=== PATIENT | female | born 1975 | race Caucasian/White ===

== ENCOUNTER 2018-04-28 17:50 | Emergency (ER) | payer BC, OTHER ==
[~2018-04-28] VITALS: Ht 154.9 cm; Wt 56.6 kg
[~2018-04-28 17:50] MED LIST: AZIT250T PO; CEPH-443 PO; DOXY100T20 PO; IBUP-1542 PO; ONDA4TAB35 PO
[2018-04-28 18:57] VITALS: BP 122/59; PULSE 69; RESP 18; Ht 154.9 cm; Wt 56.6 kg
[2018-04-28] MEDS ORDERED: ALBU18HF INHALATION (20:59)
[2018-04-28] MEDS ORDERED: AZIT250T PO (20:59)
[2018-04-28] MEDS ORDERED: BENZ-6 PO (20:59)
--- NOTE | 2018-04-28 21:05 | ERD ---
ER Documentation Chief Complaint Chief Complaint COUGH, FEVER X'S 1 WEEK HPI 43-year-old female patient with no significant past medical history presents to ED complaining of cough, fever that started 1 week ago. Patient reports that her son also has similar symptoms. Denies any chest pain, shortness of breath, nausea, vomiting, diarrhea, neck stiffness. ROS All systems reviewed and are negative except as per history of present illness. Medications Home Meds Active Scripts Albuterol Sulfate* (Ventolin HFA*) 18 Gm Hfa.aer.ad, 2 PUFF INHALATION Q4H, #1 INHALER Prov:MAGUI LUGO PA-C 04/28/18 Benzonatate* (Tessalon Perle*) 100 Mg Capsule, 100 MG PO Q8H PRN for COUGH, #20 CAP Prov:MAGUI LUGO PA-C 04/28/18 Azithromycin* (Zithromax*) 250 Mg Tablet, 250 MG PO .ZPACK DIRECTED, #6 TAB TAKE 500 MG (2 TABS) THE FIRST DAY THEN 250 MG (1 TAB) DAYS 2-5 Prov:MAGUI LUGO PA-C 04/28/18 Ibuprofen* (Ibuprofen*) 600 Mg Tablet, 600 MG PO Q6 for 10 Days, TAB Prov:JOSE GRANADOS MD 10/04/15 Doxycycline Hyclate* (Doxycycline Hyclate*) 100 Mg Tablet.dr, 100 MG PO BID for 3 Days, TAB Prov:JOSE GRANADOS MD 10/04/15 Cephalexin* (Keflex*) 500 Mg Capsule, 500 MG PO QID for 5 Days, CAP Prov:JONEL HARVEY PA-C 08/02/15 Ondansetron Hcl* (Zofran* ODT) 4 mg -ODT Tab.disper, 4 MG PO Q6 PRN for NAUSEA AND/OR VOMITING, #10 TAB Prov:RAJIV RANGEL NP 07/14/15 Azithromycin* (Zithromax*) 250 Mg Tablet, 250 MG PO .ZPACK DIRECTED, #6 TAB TAKE 500 MG (2 TABS) THE FIRST DAY THEN 250 MG (1 TAB) DAYS 2-5 Prov:DECLAN DUMAS MD 04/24/15 Allergies Allergies: Coded Allergies: No Known Allergy (Unverified , 10/04/15) PMhx/Soc History of Surgery: No Anesthesia Reaction: No Hx Neurological Disorder: No Hx Respiratory Disorders: No Hx Cardiac Disorders: No Hx Psychiatric Problems: No Hx Miscellaneous Medical Probl: No Hx Alcohol Use: No Hx Substance Use: No Hx Tobacco Use: No Smoking Status: Never smoker FmHx Family History: No diabetes, No coronary disease Physical Exam Vitals Vital Signs Date Temp Pulse Resp B/P (MAP) Pulse Ox O2 O2 Flow FiO2 Time Delivery Rate 04/28/18 97.8 69 18 122/59 100 18:57 (80) Physical Exam Const: Gjs-hdp-phmpfxnsy, well-nourished. In no acute distress. Head: Atraumatic, normocephalic Eyes: Normal Conjunctiva without injection. No purulent discharge. PERRL. EOMI ENT: Normal external ear. Ear canal without erythema. Tympanic membrane pearly miller without effusion or bulging. Nasal canal clear with normal turbinates. Moist oropharynx without tonsillar exudates. Non-erythematous pharynx. Uvula midline. No drooling. No trismus. Neck: Full range of motion. No meningismus. No cervical lymphadenopathy. Resp: Clear to auscultation bilaterally. No wheezing, rhonchi, rales, or crackles. No accessory muscle use. No retractions. Cardio: Regular rate and rhythm. No murmurs, rubs or gallops. Abd: Soft, non tender, non distended. Normal bowel sounds. No palpable masses. No rebound tenderness. No guarding. Skin: No petechiae or rashes Back: No midline tenderness. No CVA tenderness. Ext: No cyanosis, or edema. Neur: Awake and alert. Psych: Normal Mood and Affect Procedures/MDM 43-year-old female patient with no sniffing past medical history presents to ED complaining of fever and cough. Patient is afebrile and nontoxic-appearing. Based on patient's a dry cough and duration of cough without any relief with her qbgz-chw-frdisvc cough medications, patient could likely have bronchitis. Patient will be treated for bacterial etiology a glji-vjz-sot prescription, if patient's symptoms do not improve in 5 days, patient can start taking the antibiotics. Patient's physical exam include lungs which were clear to auscultation and a normal pulse oximetry. There is a low suspicion for pneumonia, pneumothorax, mononucleosis, pulmonary embolism, epiglottitis, otitis media, otitis externa, viral/strep pharyngitis, sinusitis, myocarditis, pericarditis, endocarditis, peritonsillar abscess, mastoiditis, retropharyngeal abscess, meningitis, sepsis, acute abdomen or other emergent conditions. Diagnosis: Cough Discharge medications: Zithromax, Tessalon Perles, Ventolin Patient was instructed to return to the ED for any new or worsening symptoms. They should otherwise follow up with the primary care provider within 2-3 days. The patient's questions were answered at the time of discharge. Patient understood and agreed with discharge management. Departure Diagnosis: Primary Impression: Cough Condition: Stable Patient Instructions: Bronchitis, Antiobiotic Treatment (Adult) Referrals: SOPHIA JUÁREZ MD (PCP) [facility] YOU HAVE RECEIVED A MEDICAL SCREENING EXAM AND THE RESULTS INDICATE THAT YOU DO NOT HAVE A CONDITION THAT REQUIRES URGENT TREATMENT IN THE EMERGENCY DEPARTMENT. FURTHER EVALUATION AND TREATMENT OF YOUR CONDITION CAN WAIT UNTIL YOU ARE SEEN IN YOUR DOCTORS OFFICE WITHIN THE NEXT 1-2 DAYS. IT IS YOUR RESPONSIBILITY TO MAKE AN APPOINTMENT FOR [facility] CARE. IF YOU HAVE A PRIMARY DOCTOR --you should call your primary doctor and schedule an appointment IF YOU DO NOT HAVE A PRIMARY DOCTOR YOU CAN CALL OUR PHYSICIAN REFERRAL HOTLINE AT IF YOU CAN NOT AFFORD TO SEE A PHYSICIAN YOU CAN CHOSE FROM THE FOLLOWING [facility] CL[facility]ICS [facility] [address] [facility]. [facility] [address] [facility] [facility] [address] [facility] [address] [facility]. [facility] [address] [facility]. [facility]. [address] [facility] YOU HAVE RECEIVED A MEDICAL SCREENING EXAM AND THE RESULTS INDICATE THAT YOU DO NOT HAVE A CONDITION THAT REQUIRES URGENT TREATMENT IN THE EMERGENCY DEPARTMENT. FURTHER EVALUATION AND TREATMENT OF YOUR CONDITION CAN WAIT UNTIL YOU ARE SEEN IN YOUR DOCTORS OFFICE WITHIN THE NEXT 1-2 DAYS. IT IS YOUR RESPONSIBILITY TO MAKE AN APPOINTMENT FOR [facility]. IF YOU HAVE A PRIMARY DOCTOR --you should call your primary doctor and schedule and appointment IF YOU DO NOT HAVE A PRIMARY DOCTOR YOU CAN CALL OUR PHYSICIAN REFERRAL HOTLINE AT . IF YOU CAN NOT AFFORD TO SEE A PHYSICIAN YOU CAN CHOSE FROM THE FOLLOWING [facility] INSTITUTIONS: [facility] [address] [place] [address] [facility] [address] [place] [address] [facility] [address] [place] [address] [facility]CIAL[facility] Additional Instructions: Call your primary care doctor TOMORROW for an appointment during the next 2-3 days.See the doctor sooner or return here if your condition worsens before your appointment time. MAGUI LUGO PA-C Apr 28, 2018 21:05
== END 2018-04-28 22:03 | disposition home or self-care (01) ==
LOC: FTE 17:50
DX: R05 Cough (principal)
CPT/HCPCS: 99283

== ENCOUNTER 2018-09-14 06:27 | Emergency (ER) | payer BC, OTHER ==
[~2018-09-14] VITALS: Ht 154.9 cm; Wt 57.8 kg
[~2018-09-14 06:27] MED LIST changes: +ALBU18HF INHALATION; +BENZ-6 PO
[2018-09-14 06:31] VITALS: BP 123/69; PULSE 82; RESP 18; Ht 154.9 cm; Wt 57.8 kg
[2018-09-14] MEDS ORDERED: DIPH25TA68 PO (06:49)
[2018-09-14] MEDS ORDERED: HC30CR25 TOP (06:49)
--- NOTE | 2018-09-14 06:51 | ERD ---
ER Documentation Chief Complaint Chief Complaint rash on left arm & leg x2 days, r/o scabies, employee HPI 43-year-old female presented to ED for a rash on her left leg and left arm. Patient states she was staying with her brother over the weekend in [facility] who has a dog. She is worried about scabies because her and her son slept in the same bed and both have a similar rash. Patient denies any allergies to medications. Patient states she took Benadryl last night and that it helped a little bit. Patient states the rash is not spreading but is been present like t his since the initial onset but is very itchy. ROS All systems reviewed and are negative except as per history of present illness. Medications Home Meds Active Scripts Diphenhydramine Hcl (Benadryl Allergy) 25 Mg Tablet, 25 MG PO QHS for 10 Days, TAB Prov:AIDA GUERRA PA-C 09/14/18 Hydrocortisone* Topical (Hydrocortisone* Topical) 2.5%-28.3 Gm Cream..g., 1 APPLIC TOP BID, #1 TUB Prov:AIDA GUERRA PA-C 09/14/18 Albuterol Sulfate* (Ventolin HFA*) 18 Gm Hfa.aer.ad, 2 PUFF INHALATION Q4H, #1 INHALER Prov:MAGUI LUGO PA-C 04/28/18 Benzonatate* (Tessalon Perle*) 100 Mg Capsule, 100 MG PO Q8H PRN for COUGH, #20 CAP Prov:MAGUI LUGO PA-C 04/28/18 Azithromycin* (Zithromax*) 250 Mg Tablet, 250 MG PO .CONSTANCECK DIRECTED, #6 TAB TAKE 500 MG (2 TABS) THE FIRST DAY THEN 250 MG (1 TAB) DAYS 2-5 Prov:MAGUI LUGO PA-C 04/28/18 Ibuprofen* (Ibuprofen*) 600 Mg Tablet, 600 MG PO Q6 for 10 Days, TAB Prov:JOSE GRANADOS MD 10/04/15 Doxycycline Hyclate* (Doxycycline Hyclate*) 100 Mg Tablet.dr, 100 MG PO BID for 3 Days, TAB Prov:JOSE GRANADOS MD 10/04/15 Cephalexin* (Keflex*) 500 Mg Capsule, 500 MG PO QID for 5 Days, CAP Prov:PROUSE,JONEL M. PA-C 08/02/15 Ondansetron Hcl* (Zofran* ODT) 4 mg -ODT Tab.disper, 4 MG PO Q6 PRN for NAUSEA AND/OR VOMITING, #10 TAB Prov:RAJIV RANGEL Mayra RIVAS 07/14/15 Azithromycin* (Zithromax*) 250 Mg Tablet, 250 MG PO .ZPACK DIRECTED, #6 TAB TAKE 500 MG (2 TABS) THE FIRST DAY THEN 250 MG (1 TAB) DAYS 2-5 Prov:DECLAN DUMAS MD 04/24/15 Allergies Allergies: Coded Allergies: No Known Allergy (Unverified , 10/04/15) PMhx/Soc Medical and Surgical Hx: pt denies Medical Hx, pt denies Surgical Hx History of Surgery: No Anesthesia Reaction: No Hx Neurological Disorder: No Hx Respiratory Disorders: No Hx Cardiac Disorders: No Hx Psychiatric Problems: No Hx Miscellaneous Medical Probl: No Hx Alcohol Use: No Hx Substance Use: No Hx Tobacco Use: No FmHx Family History: No diabetes, No coronary disease, No other Physical Exam Vitals Vital Signs Date Temp Pulse Resp B/P (MAP) Pulse Ox O2 O2 Flow FiO2 Time Delivery Rate 09/14/18 98.1 82 18 123/69 100 06:31 (87) Physical Exam Const: No acute distress Head: Atraumatic Eyes: Normal Conjunctiva ENT: Normal External Ears, Nose and Mouth. Neck: Full range of motion. No meningismus. Resp: Clear to auscultation bilaterally Cardio: Regular rate and rhythm, no murmurs Abd: Soft, non tender, non distended. Normal bowel sounds Skin: <1cm multiple red raised lesions located on her left leg, left arm, no signs of lesions between the webs of the fingers or webs of the toes, no burrows noted on physical examination. Back: No midline or flank tenderness Ext: No cyanosis, or edema Neur: Awake and alert Psych: Normal Mood and Affect Procedures/MDM Medical decision makin-year-old female presented to ED for rash on her left arm and left leg that she noticed Friday morning. Patient states she was down in [facility] staying at her brother's house who has a dog her and her son both slept in the same bed and woke up with these little red lesions on her left leg and left arm. Patient is worried that it may be scabies. Physical exam showed no linear burrows or l esions between the webs of her fingers or webs of her toes. The lesions look more consistent with flea bites than scabies. Patient states that she took Benadryl last night and that it helped. Patient was offered a Decadron shot and some Benadryl but she is going to work and she does not want to feel drowsy and does not want the steroid shot. At this time I have low suspicion for scabies, Kawasaki disease, scarlet fever, necrotizing fasciitis, sepsis, gangrene, Galindo-Javier syndrome, toxic epidural necrolysis, abscess, cellulitis, herpes zoster, viral exanthem, anaphylaxis, allergic reaction, allergic contact dermatitis, irritant contact dermatitis, fungal infection, insect bite, impetigo, dermatitis. Patient was given prescription for Benadryl hydroco rtisone topical. Patient was advised if symptoms worsen return to ER immediately otherwise follow-up with your primary care provider in 1 to 2 days regarding this visit. Patient had no further questions upon discharge and is agreement to the treatment plan Prescription for home: Benadryl Hydrocortisone topical I have discussed with the patient proper use and common side effects to expert with the medication . I advised the patient/family to speak with the pharmacist dispensing the medication to be advised of any potential drug interactions with other medication or supplements they may be taking. Discharge: At this time, patient is stable for discharge and outpatient management. I have instructed the patient to follow-up with his\her primary care physician in 1 to 2 days. I have discussed with the patient the possibility of needing to see a specialist for further work-up and imaging studies if symptoms persist. I have instructed the patient to promptly return to the ER for any new or worsening symptoms including increased pain, fever, nausea, vomiting, weakness or LOC. The patient and\or family expressed understanding of and agreement with this plan. All questions were answered. Home care instructions were provided. Disclaimer: Inadvertent spelling and grammatical errors are likely due to EHR\dictation software use and do not reflect on the overall quality of patient care. Also, please note that the electronic time recorded on the note does not necessarily reflect the actual time of the patient encounter. Departure Diagnosis: Primary Impression: Rash Condition: Stable Patient Instructions: Self-Care for Skin Rashes Referrals: SOPHIA JUÁREZ MD (PCP) Additional Instructions: Call your primary care doctor TOMORROW for an appointment during the next 1-2 days.See the doctor sooner or return here if your condition worsens before your appointment time. AIDA GUERRA PA-C Sep 14, 2018 06:51
== END 2018-09-14 07:10 | disposition home or self-care (01) ==
LOC: FTE 06:27
DX: L98.9 Disorder of the skin and subcutaneous tissue, unspecified (principal)
CPT/HCPCS: 99283